=== PATIENT | female | born 1955 | race Caucasian/White ===

== ENCOUNTER 2024-04-13 13:37 | Inpatient (IN) | payer MEDICARE, OTHER ==
[~2024-04-13] VITALS: Ht 165.1 cm; Wt 115.7 kg
[2024-04-13 15:11] LABS: BASOPHILS # (AUTO) 0.1 K/UL (0.0-0.2); BASOPHILS % (AUTO) 0.7 % (0.0-2.0); EOSINOPHILS # (AUTO) 0.1 K/uL (0.0-0.7); HEMATOCRIT 39.3 % (31.2-41.9); HEMOGLOBIN 12.7 g/dL (10.9-14.3); LYMPHOCYTES # (AUTO) 2.2 K/uL (0.8-4.8); LYMPHOCYTES % (AUTO) 22.1 % (20.5-51.5); MEAN CORPUSCULAR HEMOGLOBIN 27.4 uug (24.7-32.8); MEAN CORPUSCULAR HGB CONC 32 g/dL (32.3-35.6); MEAN CORPUSCULAR VOLUME 84.6 fL (75.5-95.3); MONOCYTES # (AUTO) 0.9 K/uL (0.1-1.30); MONOCYTES % (AUTO) 8.8 % (0.0-11.0); NEUTROPHILS # (AUTO) 6.8 K/uL (1.8-8.9); NEUTROPHILS % (AUTO) 67.4 % (38.5-71.5); PLATELET COUNT (AUTO) 239 K/uL (179-408); RED BLOOD CELL COUNT(AUTO) 4.64 MIL/uL (3.63-4.92); RED CELL DISTRIBUTION WIDTH 13.3 % (12.3-17.7)
[2024-04-13 15:31] LABS: ALANINE AMINOTRANSFERASE 17 U/L (14-59); ALBUMIN 2.9 g/dL (3.4-5.0); ALKALINE PHOSPHATASE 101 U/L (50-136); ASPARTATE AMINOTRANSFERASE 10 U/L (15-37); BILIRUBIN,DIRECT 0.1 mg/dL (0.0-0.2); BILIRUBIN,TOTAL 0.3 mg/dL (0.2-1.0); CALCIUM 9.2 mg/dL (8.5-10.1); CARBON DIOXIDE 27 mmol/L (21-32); CHLORIDE 100 mmol/L (98-107); CREATININE 0.6 mg/dL (0.6-1.3); GLUCOSE 367 mg/dL (74-106); NT-PRO BNP 42 pg/mL (0-125); SODIUM SERUM 135 mmol/L (136-145); TOTAL PROTEIN, SERUM 6.8 g/dL (6.4-8.2); UREA NITROGEN, BLOOD 14 mg/dL (7-18)
[2024-04-13] MEDS: CEFTRIAXONE 2 G in IV DEXTROSE 5% 100 ML IV ONE (17:15)
[2024-04-13] MEDS: AZITHROMYCIN 250 MG TABLET PO ONE (17:15)
[2024-04-13] MEDS ORDERED: CEFTRIAXONE /D5W 50ML IVPB **ER PYXIS IV ONE (18:08)
[2024-04-13 20:00] VITALS: BP 147/71; TEMP 98; O2SAT 97
[2024-04-14] VITALS (10 sets, daily range): BP systolic 119–148; BP diastolic 61–76; TEMP 97.5–98.4; O2SAT 94–97
[2024-04-14] MEDS ORDERED: MAGNESIUM HYDROXIDE 30 ML LIQUID UDC PO PRN (02:00)
[2024-04-14] MEDS ORDERED: REMEDY ESSENTIAL ZINC PASTE 113 GM TP PRN (02:00)
[2024-04-14] MEDS ORDERED: ONDANSETRON 4 MG/2 ML VIAL IV PRN (02:00)
[2024-04-14] MEDS: diphenhydrAMINE 25 MG CAP PO ONE (02:02)
[2024-04-14 07:19] LABS: BASOPHILS # (AUTO) 0.1 K/UL (0.0-0.2); BASOPHILS % (AUTO) 0.7 % (0.0-2.0); EOSINOPHILS # (AUTO) 0.1 K/uL (0.0-0.7); EOSINOPHILS % (AUTO) 1.1 % (0.0-7.0); HEMOGLOBIN 12.8 g/dL (10.9-14.3); LYMPHOCYTES # (AUTO) 1.9 K/uL (0.8-4.8); LYMPHOCYTES % (AUTO) 24.8 % (20.5-51.5); MEAN CORPUSCULAR HEMOGLOBIN 28.4 uug (24.7-32.8); MEAN CORPUSCULAR HGB CONC 34 g/dL (32.3-35.6); MEAN CORPUSCULAR VOLUME 83.9 fL (75.5-95.3); MONOCYTES # (AUTO) 0.7 K/uL (0.1-1.30); MONOCYTES % (AUTO) 8.6 % (0.0-11.0); NEUTROPHILS # (AUTO) 5.1 K/uL (1.8-8.9); NEUTROPHILS % (AUTO) 64.8 % (38.5-71.5); PLATELET COUNT (AUTO) 232 K/uL (179-408); RED BLOOD CELL COUNT(AUTO) 4.52 MIL/uL (3.63-4.92); RED CELL DISTRIBUTION WIDTH 13.3 % (12.3-17.7); WHITE BLOOD COUNT (AUTO) 7.8 K/uL (3.8-11.8)
[2024-04-14 07:31] LABS: ALBUMIN 2.9 g/dL (3.4-5.0); BILIRUBIN,DIRECT 0.1 mg/dL (0.0-0.2); BILIRUBIN,TOTAL 0.4 mg/dL (0.2-1.0); CALCIUM 8.8 mg/dL (8.5-10.1); CREATININE 0.7 mg/dL (0.6-1.3); MAGNESIUM 2.1 mg/dL (1.8-2.4); PHOSPHOROUS 4.1 mg/dL (2.5-4.9); POTASSIUM 4.1 mmol/L (3.5-5.1); TOTAL PROTEIN, SERUM 6.8 g/dL (6.4-8.2)
[2024-04-14 07:36] LABS: DIFFERENTIAL COMMENT 1
[2024-04-14 07:38] LABS: THYROID STIMULATING HORMONE 1.663 mIU/mL (0.358-3.740)
[2024-04-14] MEDS ORDERED: ACET325T53 PO (09:28)
[2024-04-14] MEDS ORDERED: AMMO385C4 TP (09:28)
[2024-04-14] MEDS ORDERED: DEXTROSE 50% 50 ML DISP.SYRIN IV PRN ×2 (09:30→10:15)
[2024-04-14] MEDS: INSULIN REGULAR, HUMAN 1000 UNIT/10 ML VIAL SQ PRN ×2 (09:36→12:16)
[2024-04-14] MEDS: BLOOD SUGAR DIAGNOSTIC 1 EACH STRIP VI SCH ×2 (09:38→12:10)
[2024-04-14] MEDS ORDERED: POTA10CA43 PO (09:42)
[2024-04-14] MEDS ORDERED: INSU100V28 (09:42)
[2024-04-14] MEDS ORDERED: AMLO10TA59 PO (09:42)
[2024-04-14] MEDS ORDERED: IPRA3AMP23 IH (09:42)
[2024-04-14] MEDS ORDERED: CLIN300C12 PO (09:42)
[2024-04-14] MEDS ORDERED: INSU100V7 SQ (09:42)
[2024-04-14] MEDS ORDERED: HYDR-894 PO (09:42)
[2024-04-14] MEDS ORDERED: LOSA100T31 PO (09:42)
[2024-04-14] MEDS ORDERED: FURO40TA5 PO (09:42)
[2024-04-14] MEDS ORDERED: GUAI600T53 PO (09:42)
[2024-04-14] MEDS ORDERED: CEPH500C2 PO (09:42)
[2024-04-14] MEDS ORDERED: ALBUTEROL SULFATE 2.5 MG/3 ML NEBU NEB PRN (13:45)
[2024-04-14] MEDS ORDERED: hydrALAZINE HCL 25 MG TABLET PO PRN (13:45)
[2024-04-14] MEDS: GUAIFENESIN SUGAR FREE 100 MG/5 ML UDC PO PRN (13:58)
[2024-04-14] MEDS: IPRATROPIUM BROMIDE 0.5 MG/2.5 ML NEBU NEB PRN (13:58)
[2024-04-14] MEDS: ALBUTEROL SULFATE 2.5 MG/ 0.5 ML NEBU NEB PRN (13:58)
[2024-04-14] MEDS: ACETAMINOPHEN 325 MG TABLET PO PRN (16:24)
[2024-04-14] MEDS ORDERED: CEFTRIAXONE 1 G in IV DEXTROSE 5% 50 ML IV SCH ×2 (17:00→21:00)
[2024-04-14] MEDS: CEFTRIAXONE 2 G in IV DEXTROSE 5% 100 ML IV SCH (17:43)
[2024-04-14] MEDS: AZITHROMYCIN IV 500 MG in IV DEXTROSE 5% 250 ML IV SCH (18:41)
[2024-04-14] MEDS ORDERED: AZITHROMYCIN IV 500 MG in IV DEXTROSE 5% 250 ML IV SCH (21:00)
[2024-04-14] MEDS: INSULIN GLARGINE,HUM 300 UNITS/3 ML CARTRIDGE SQ SCH (21:27)
[2024-04-14] MEDS: INSULIN REGULAR, HUMAN 300 UNITS/3 ML VIAL SQ PRN (21:31)
[2024-04-15] VITALS (9 sets, daily range): BP systolic 123–143; BP diastolic 67–81; TEMP 98.1–98.8; O2SAT 93–99
[2024-04-15 07:02] LABS: BASOPHILS # (AUTO) 0.1 K/UL (0.0-0.2); BASOPHILS % (AUTO) 0.6 % (0.0-2.0); EOSINOPHILS # (AUTO) 0.1 K/uL (0.0-0.7); EOSINOPHILS % (AUTO) 1.7 % (0.0-7.0); HEMATOCRIT 38.9 % (31.2-41.9); HEMOGLOBIN 13.1 g/dL (10.9-14.3); LYMPHOCYTES % (AUTO) 23.2 % (20.5-51.5); MEAN CORPUSCULAR HEMOGLOBIN 28.4 uug (24.7-32.8); MEAN CORPUSCULAR HGB CONC 34 g/dL (32.3-35.6); MEAN CORPUSCULAR VOLUME 84.6 fL (75.5-95.3); MONOCYTES # (AUTO) 0.6 K/uL (0.1-1.30); NEUTROPHILS # (AUTO) 5.8 K/uL (1.8-8.9); NEUTROPHILS % (AUTO) 67.5 % (38.5-71.5); PLATELET COUNT (AUTO) 240 K/uL (179-408); RED CELL DISTRIBUTION WIDTH 13.5 % (12.3-17.7); WHITE BLOOD COUNT (AUTO) 8.6 K/uL (3.8-11.8)
[2024-04-15 07:28] LABS: DIFFERENTIAL COMMENT 1
[2024-04-15 08:10] LABS: CALCIUM 8.8 mg/dL (8.5-10.1); CREATININE 0.8 mg/dL (0.6-1.3); MAGNESIUM 2.2 mg/dL (1.8-2.4); PHOSPHOROUS 3.5 mg/dL (2.5-4.9); POTASSIUM 4.3 mmol/L (3.5-5.1)
[2024-04-15] MEDS ORDERED: POTASSIUM CHLORIDE 10 MEQ TAB.PRT.SR PO SCH (09:00)
[2024-04-15] MEDS ORDERED: levoFLOXacin 500 MG/D5W 500 MG in PREMIXED 1 EACH IV SCH (21:00)
[2024-04-15] MEDS ORDERED: diphenhydrAMINE 50 MG/1 ML VIAL IV PRN (21:00)
[2024-04-15] MEDS: INSULIN GLARGINE,HUM 300 UNITS/3 ML CARTRIDGE SQ SCH (21:25)
[2024-04-15] MEDS: ATORVASTATIN 10 MG TABLET PO SCH (21:34)
[2024-04-15] MEDS ORDERED: CEFEPIME HCL 1 G VIAL ONE (22:43)
[2024-04-15] MEDS: DOXYCYCLINE HYCLATE 100 MG TABLET PO SCH (23:36)
[2024-04-15] MEDS: CEFEPIME HCL 1 G in IV DEXTROSE 5% 50 ML IV SCH (23:36)
[2024-04-15] MEDS: diphenhydrAMINE 50 MG/1 ML VIAL IV PRN (23:36)
[2024-04-16 02:51] LABS: *BILIRUBIN,URIN NEGATIVE (NEGATIVE); *BLOOD, URINE 2+ (NEGATIVE); *CLARITY,URINE CLEAR (CLEAR); *COLOR,URINE YELLOW (YELLOW); *KETONES,URINE NEGATIVE (NEGATIVE); *PROTEIN,URINE NEGATIVE (NEGATIVE); *UROBILINOGEN,URINE 0.2 E.U./dl (NORMAL); LEUKOCYTE ESTERASE ,URINE NEGATIVE (NEGATIVE); NITRITE, URINE NEGATIVE (NEGATIVE); UGLUCOSE 3+ (NEGATIVE)
[2024-04-16 02:52] LABS: BACTERIA,URINE FEW /HPF (NONE SEEN); SQUAMOUS EPITHELIAL CELL,UR FEW /HPF (NONE SEEN); WBC,URINE 0-3 /HPF (0-3)
[2024-04-16 04:20] VITALS: BP 157/85; TEMP 98; O2SAT 93
[2024-04-16] MEDS: CEFEPIME HCL 2 GM in IV DEXTROSE 5% 100 ML IV SCH (09:00)
[2024-04-16] MEDS: MULTIVITAMINS,THERAPEUTIC TABLET PO SCH (09:29)
[2024-04-16 11:53] VITALS: BP 147/83; TEMP 98.1; O2SAT 96
[2024-04-16] MEDS: levoFLOXacin 500 MG TABLET PO SCH (14:27)
[2024-04-16 14:30] VITALS: O2SAT 94
[2024-04-16 14:40] VITALS: O2SAT 99
== END 2024-04-16 16:10 | DRG 178 ==
LOC: ER 13:38 → TELE3 21:41 → MEDSURG3 04-14 09:11
PROVIDERS: ADMIT Nurse Practitioner Family; ATTEND Internal Medicine
DX: J15.69 Pneumonia due to other Gram-negative bacteria (principal); E44.0 Moderate protein-calorie malnutrition; J44.0 Chronic obstructive pulmonary disease with (acute) lower respiratory infection; Z68.41 Body mass index [BMI] 40.0-44.9, adult; L03.116 Cellulitis of left lower limb; L03.115 Cellulitis of right lower limb; I45.2 Bifascicular block; Z99.81 Dependence on supplemental oxygen; E66.01 Morbid (severe) obesity due to excess calories; Z88.0 Allergy status to penicillin; E11.42 Type 2 diabetes mellitus with diabetic polyneuropathy; B35.1 Tinea unguium; L85.3 Xerosis cutis; Z79.4 Long term (current) use of insulin; I87.8 Other specified disorders of veins; E78.5 Hyperlipidemia, unspecified; I89.0 Lymphedema, not elsewhere classified; G89.29 Other chronic pain; E11.65 Type 2 diabetes mellitus with hyperglycemia; E88.09 Other disorders of plasma-protein metabolism, not elsewhere classified; I27.20 Pulmonary hypertension, unspecified; I07.1 Rheumatic tricuspid insufficiency; I11.9 Hypertensive heart disease without heart failure; G47.33 Obstructive sleep apnea (adult) (pediatric); I25.10 Atherosclerotic heart disease of native coronary artery without angina pectoris; Z79.899 Other long term (current) drug therapy; F32.A Depression, unspecified; F43.10 Post-traumatic stress disorder, unspecified; L60.3 Nail dystrophy; Z91.411 Personal history of adult psychological abuse; Z91.410 Personal history of adult physical and sexual abuse
CPT/HCPCS: 36415; 71045; 71250; 83605; 83735; 84100; 84443; 84484; 85025; 85730; 87040; 93005; 94640; 94664; 94760; A4606; A4663; G0378; J0456; J0692; J0696; J1200; J1815; J1956; J3590; J7050; Q0144